=== PATIENT | male | born 1965 | race Caucasian/White ===

== ENCOUNTER 2017-08-13 06:42 | Observation (INO) | payer OTHER ==
[2017-08-13] MEDS ORDERED: ceFAZolin 2 GM/SWFI 2 GM/20 ML SYR IVP ONE (06:53)
[2017-08-13] MEDS ORDERED: GABAPENTIN 300 MG CAP PO ONE (06:53)
[2017-08-13] MEDS ORDERED: ACETAMINOPHEN 500 MG TAB PO ONE (06:53)
[2017-08-13] MEDS ORDERED: LR 1,000 ML IV ONE (06:55)
--- NOTE | 2017-08-13 06:56 | PDHPUP ---
History & Physical Update H&P update statement: This history and physical update is based on an assessment of the patient which was completed after admission or registration (within 24 hours), but prior to the surgery/procedure. H&P update: H&P reviewed & patient examined, no change in patient's condition since H&P completed (Consents signed and site marked. C5/6 ACDF (CTR was not approved by insurance). All questions answered.)
[2017-08-13] MEDS ORDERED: THROMBIN (BOVINE) 20,000 UNIT VIAL TP ONE (07:46)
[2017-08-13] MEDS ORDERED: CHLORHEXIDINE GLUC HIBICLENS 118 ML BTL TP ONE (07:46)
[2017-08-13] MEDS ORDERED: BACITRACIN 50,000 UNITS/10 ML SYR IRR ONE (07:47)
[2017-08-13] MEDS ORDERED: SURGIFLO MATRIX KIT WITH THROMBIN TP ONE (07:48)
[2017-08-13] MEDS ORDERED: fentaNYL 100 MCG/2 ML INJ ONE ×2 (08:06→10:40)
[2017-08-13] MEDS ORDERED: MIDAZOLAM 2 MG/2 ML VIAL ONE (08:06)
[2017-08-13] MEDS ORDERED: PROPOFOL/EMULSION 500 MG/50 ML BOTTLE IV ONE (08:07)
[2017-08-13] MEDS ORDERED: SUGAMMADEX SODIUM 200 MG/2 ML VIAL IVP ONE (08:53)
[2017-08-13] MEDS ORDERED: LIDOCAINE 2% 5 ML SDV ONE ×2 (08:53→09:07)
[2017-08-13] MEDS ORDERED: ONDANSETRON 4 MG/2 ML VIAL ONE (08:53)
[2017-08-13] MEDS ORDERED: METOCLOPRAMIDE 10 MG/2 ML VIAL ONE (08:53)
[2017-08-13] MEDS ORDERED: ROCURONIUM 50 MG/5 ML VIAL ONE (08:53)
[2017-08-13] MEDS ORDERED: RANITIDINE 50 MG/2 ML VIAL ONE (08:53)
[2017-08-13] MEDS ORDERED: LR 500 ML IV PRN (08:56)
[2017-08-13] MEDS ORDERED: DEXAMETHASONE 4 MG/ML VIAL IVP PRN (08:56)
[2017-08-13] MEDS ORDERED: ONDANSETRON 4 MG/2 ML VIAL IVP PRN ×2 (08:56→10:06)
[2017-08-13] MEDS ORDERED: PROMETHAZINE HCL 25 MG/ML INJ IVP PRN (08:56)
[2017-08-13] MEDS ORDERED: NALOXONE HCL 0.4 MG/ML INJ IVP PRN (08:56)
[2017-08-13] MEDS ORDERED: ALBUTEROL 3 ML DEYVIAL IH PRN (08:56)
--- NOTE | 2017-08-13 08:56 | PDANEPAE ---
ANE Past Medical History - Cardiovascular History Hx Hypertension: No Hx Arrhythmias: No Hx Chest Pain: No Hx Coronary Artery / Peripheral Vascular Disease: No Hx CHF / Valvular Disease: No Hx Palpitations: No - Pulmonary History Hx COPD: No Hx Asthma/Reactive Airway Disease: No Hx Recent Upper Respiratory Infection: No Hx Oxygen in Use at Home: No Hx Sleep Apnea: No Sleep Apnea Screening Result - Last Documented: Positive Pulmonary History Comment: HX - TRAUMATIC PNEUMOTHORAX W/THORANCENTESIS & TUBE - Neurologic History Hx Cerebrovascular Accident: No Hx Seizures: No Hx Dementia: No Neurologic History Comment: MYOCLONUS ATTACKS - DECREASED WITH MEDS - Endocrine History Hx Diabetes: No - Renal History Hx Renal Disorders: No - Liver History Hx Hepatic Disorders: No - Neurological & Psychiatric Hx Hx Neurological and Psychiatric Disorders: Yes Neurological / Psychiatric History Comment: depression/anxiety - Cancer History Hx Cancer: No - Congenital Disorder History Hx Congenital Disorders: No - GI History Hx Gastrointestinal Disorders: No - Other Health History Other Health History: none - Chronic Pain History Chronic Pain: No - Surgical History Prior Surgeries: TONSILLECTOMY. lumbar fusion ANE Review of Systems Review of Systems: - Exercise capacity METS (RN): 4 METS ANE Patient History - Allergies Allergies/Adverse Reactions: No Known Allergies Allergy (Verified 07/27/17 15:15) - Home Medications Home Medications: DULoxetine [Cymbalta 30 MG (*)] 30 mg PO BID 07/20/17 [Last Taken 08/13/17 06:00 ] Ibuprofen [Advil] 600 mg PO TID PRN 07/20/17 [Last Taken 08/12/17] - NPO status NPO Since - Liquids (Date): 08/12/17 NPO Since - Liquids (Time): 18:30 NPO Since - Solids (Date): 08/12/17 NPO Since - Solids (Time): 18:30 - Smoking Hx Smoking Status: Never smoked - Family Anes Hx Family Hx Anesthesia Complications: none ANE Labs/Vital Signs - Vital Signs Blood Pressure: 121/77 Heart Rate: 54 Respiratory Rate: 16 O2 Sat (%): 97 Height: 187.96 cm Weight: 86.183 kg ANE Physical Exam - Airway Neck exam: FROM Mallampati Score: Class 1 Mouth exam: normal dental/mouth exam - Pulmonary Pulmonary: no respiratory distress, no rales or rhonchi, clear to auscultation - Cardiovascular Cardiovascular: regular rate and rhythym, no murmur, rub, or gallop - ASA Status ASA Status: II ANE Anesthesia Plan Anesthesia Plan: general endotracheal anesthesia
[2017-08-13] MEDS ORDERED: PROPOFOL 200 MG/20 ML VIAL ONE (09:07)
[2017-08-13] MEDS ORDERED: ONDANSETRON DISINTEGRATING 4 MG TAB PO PRN (10:06)
[2017-08-13] MEDS ORDERED: MAGNESIUM HYDROXIDE 30 ML UDCUP PO PRN (10:06)
[2017-08-13] MEDS ORDERED: BISACODYL 10 MG SUPP PR PRN (10:06)
[2017-08-13] MEDS ORDERED: LACTULOSE 20 GM/30 ML UDCUP PO PRN (10:06)
[2017-08-13] MEDS ORDERED: diphenhydrAMINE 25 MG CAP PO PRN (10:06)
[2017-08-13] MEDS ORDERED: POLYETHYLENE GLYCOL 3350 17 GM PKT PO PRN (10:06)
--- NOTE | 2017-08-13 10:14 | POSTOPPROG ---
Post Op Note Date of Operation: 08/13/17 Surgeon: Anil Stephenson Parimutuel Cashier: ROBIN Bowles Anesthesia: GET(General Endotracheal) Pre-op Diagnosis: cervical stenosis Post-op Diagnosis: cervical stenosis Indication: Cervical stenosis Procedure: ACDF c5/6 Findings: cervical stenosis Inf/Abcess present in the surg proc area at time of surgery?: No EBL: Minimal PA Addendum - Addendum .: S: Resting comfortably. neck pain O: NAD A&Ox3 MAEx4 5/5 and equal in BUE and BLE. neck soft supple no edema 51 y/o male s/p ACDF C5/6 -Post op xrays pending -PT/OT -Optimize pain management -DVT prophx: TEDs, SCDs, Lovenox POD3 -Please notify NS with any change in neuro/motor exam
[2017-08-13] MEDS ORDERED: NS W/ 20 KCl/L 1,000 ML IV SCH (10:15)
--- NOTE | 2017-08-13 10:27 | POSTANESTH ---
Post Anesthetic Evaluation Cardiovascular Status: Normal, Stable Respiratory Status: Normal, Stable Level of Consciousness/Mental Status: Can Participate in Eval Pain Control: Adequate, Prn Tx Ordered Nausea/Vomiting Control: Adequate, Prn Tx Ordered Complications Possibly Related to Anesthesia: None Noted
[2017-08-13] MEDS: fentaNYL 100 MCG/2 ML INJ IVP PRN ×2 (10:43→11:03)
[2017-08-13] MEDS: ACETAMINOPHEN 500 MG TAB PO SCH ×2 (13:54→20:56)
--- NOTE | 2017-08-13 14:05 | GOP ---
[f rep st] OPERATIVE REPORT DATE OF OPERATION: 08/13/2017 SURGEON: Anil Stephenson MD HEALTH AID: ROBIN Carreno. ANESTHESIA: General. PREOPERATIVE DIAGNOSIS: 1. C5-C6 lateral recess and foraminal stenosis. 2. Cervicalgia and upper extremity radiculopathy. 3. Treatment refractory to nonoperative intervention. POSTOPERATIVE DIAGNOSIS: 1. C5-C6 lateral recess and foraminal stenosis. 2. Cervicalgia and upper extremity radiculopathy. 3. Treatment refractory to nonoperative intervention. PROCEDURE PERFORMED: 1. Anterior arthrodesis with approach to C5-C6. 2. C5-C6 diskectomy with bilateral foraminotomies, osteophytectomies, and interbody fusion using a 7 x 14 x 11 mm titanium coated polyetheretherketone cage filled with morselized autograft and allograft. 3. Anterior cervical fusion C5-C6 with a 4tiitootronic 19 mm Zevo plate. 4. Use of intraoperative fluoroscopy, less than 1 hour physician time. 5. Use of neuromonitoring. 6. Use of the operative microscope. FINDINGS: per imaging SPECIMENS: None. ESTIMATED BLOOD LOSS: 10 mL. INDICATIONS: The patient is a gentleman who unfortunately is suffering from upper neck pain and upper extremity radiculopathy. These have been refractory to nonoperative intervention. After discussion of risks, benefits, and treatment alternatives, after failing nonoperative intervention, we decided to proceed forth with surgery as described above. The patient was originally scheduled also for a carpal tunnel release. However, his insurance did not approve this prior to his surgical intervention. DESCRIPTION OF PROCEDURE: Patient was brought to operating theater and underwent general endotracheal anesthesia without complications. Venodynes, MARTINA hose, and the appropriate lines were placed by Anesthesia. His head was maintained supine on the operating table in slight extension. All bony processes were inspected and padded. Using lateral fluoroscopy and a spinal needle, we then picked our entry point to the C5-C6 level. This was marked as a transverse incision on the right side of his neck. This area was then prepped and draped in the usual sterile surgical fashion. A time-out was completed per protocol. The patient received antibiotics within 1 hour of incision. The incision was taken down initially with the scalpel blade, and then using monopolar, the incision was taken down through subcutaneous tissue to the level of the platysma. The platysma was opened and then using both blunt and sharp dissection we traveled in a plane medial to the carotid sheath, lateral to esophagus and trachea to reach the prevertebral fascia. We laneded on the anterior vertebral bodies of C5 and C6 and placed a bayonetted needle into the disk space and confirmed our level using lateral fluoroscopy. Deep retractors were placed to maintain our exposure. The microscope was brought into the field to assist with microscopic dissection and to maintain illumination and magnification. Using a combination of the bur tip on the drill bit, Kerrison punches, and angled curettes we completed a C5-C6 diskectomy with bilateral foraminotomies and osteophytectomies. We prepared the cartilaginous endplates and measured interbody space. We placed a 7 x 14 x 11 mm titanium coated PEEK cage filled with morselized autograft and allograft into the C5-C6 disk space. We removed the Friendship pins and drilled down the anterior osteophytes. We then secured a 19 mm Medtronic Zevo plate onto the vertebral bodies of C5 and C6. AP and lateral x-rays demonstrated good placement of the hardware. The wound was irrigated copiously with bacitracin irrigation. We closed the wound in multiple layers using Vicryl sutures for the deep layers and Dermabond for the skin. The patient was then awakened, extubated, and taken to the recovery room in stable condition. There were no complications and no noted changes on neuromonitoring throughout the procedure. COMPLICATIONS: None. /[id number]/MODL MTDD
[2017-08-13] MEDS: ceFAZolin 2 GM/DEXTROSE 100 ML IV SCH ×2 (16:22→23:36)
[2017-08-13] MEDS: CYCLOBENZAPRINE 10 MG TAB PO SCH ×2 (16:24→20:56)
[2017-08-13] MEDS: SENNOSIDES/DOCUSATE SODIUM TAB PO SCH (20:56)
[2017-08-13] MEDS: FAMOTIDINE 20 MG TAB PO SCH (20:56)
[2017-08-13] MEDS: oxyCODONE IR 5 MG TAB PO PRN (20:57)
[2017-08-13] MEDS: CEPACOL LOZENGE PO PRN (23:36)
[2017-08-14 04:36] VITALS: O2SAT 97
[2017-08-14] MEDS: CEPACOL LOZENGE PO PRN (04:43)
[2017-08-14] MEDS: ACETAMINOPHEN 500 MG TAB PO SCH (05:38)
[2017-08-14 08:02] VITALS: BP 123/78; PULSE 55; RESP 12; TEMP 97.4
[2017-08-14] MEDS: CYCLOBENZAPRINE 10 MG TAB PO SCH (08:23)
[2017-08-14] MEDS: SENNOSIDES/DOCUSATE SODIUM TAB PO SCH (08:23)
[2017-08-14] MEDS: oxyCODONE IR 5 MG TAB PO PRN (08:23)
[2017-08-14] MEDS: FAMOTIDINE 20 MG TAB PO SCH (08:23)
--- NOTE | 2017-08-14 10:52 | NEUSURGPN ---
Date of Surgery: 08/13/17 Post Op Day: 1 Assessment/Plan: 51 yo male s/p ACDF C5/6 - neuro stable - pain controlled on orals - postop x-rays stable - tolerating a diet - discharge home today Subjective: Doing well this morning. No UE pain, numbness, tingling, weakness. Objective: Awake. Alert. PERRL. EOMI Facial expression symmetrical Muscle strength full at 5/5 Sensation intact Incision with dressing c/d/i Neurosurgery Physical Exam - Vitals, I&O, Labs I and O 08/13/17 08/14/17 08/15/17 05:59 05:59 05:59 Intake Total 1050 1010 Balance 1050 1010 Weight 86.183 kg Intake: Oral (ml) 250 IV Intake (ml) 800 IV Infused (ml) 1010 NS W/ 20 KCl/L 1,000 ml @ 900 75 mls/hr IV CONT LUIZ Rx #:[id number] ceFAZolin 2 GM/DEXTROSE 110 100 ml @ 200 mls/hr IV Q8H LUIZ Rx#:[id number] Other: Intake Quantity Yes Sufficient Number of Voids Toilet 1 Vital Signs Temp Pulse Resp BP Pulse Ox 36.3 C 55 L 12 123/78 H 97 08/14/17 08:01 08/14/17 08:01 08/14/17 08:01 08/14/17 08:01 08/14/17 08:01 ICD10 Worksheet Patient Problems: Problems Problem Status Onset Degeneration of lumbar intervertebral disc Acute
--- NOTE | 2017-08-14 12:46 | ASDISCHSUM ---
Discharge Information Plan Status:Home with No Needs Medically Cleared to Leave: Discharge Date:08/14/2017 11:55 AM CM D/C Disposition:Home, Routine, Self-Care ADT D/C Disposition:Home, Routine, Self-Care Projected Discharge Date:08/14/2017 11:55 AM Transportation at D/C: Discharge Delay Reason: Follow-Up Date:08/14/2017 11:55 AM Discharge Slot: Final Diagnosis: Placement Information Patient Contact Information Contact Name:PRAMOD Relationship: Address:[address] [place] [address] City:[facility] Phone: [facility]/Zip Code:[place] [address] Email: Financial Information Financial Class:HMO and PPO Plans Primary Plan Desc:[employer] Primary Plan Number:[id number] Secondary Plan Desc: Secondary Plan Number: Assessment Information [facility] CM Progress Note CM Note CM Note Notes: Discussed case w/ZAIN. Pt dc'd home independantly, had no dc needs. Date Signed: 08/14/2017 12:45 PM Electronically Signed By:Kajal Escobar RN Intervention Information
--- NOTE | 2017-08-14 12:46 | ASMTCMCOM ---
CM Note CM Note Notes: Discussed case w/RN. Pt dc'd home independantly, had no dc needs. Date Signed: 08/14/2017 12:45 PM Electronically Signed By:Kajal Escobar RN
[2017-08-16] MEDS ORDERED: ENOXAPARIN 40 MG/0.4 ML SYR SC SCH (09:00)
== END 2017-08-14 11:55 | disposition home or self-care (01) ==
LOC: F3N 06:42
PROVIDERS: ADMIT Neurological Surgery; ATTEND Neurological Surgery
DX: M48.02 Spinal stenosis, cervical region (principal); G56.01 Carpal tunnel syndrome, right upper limb; M51.36 Other intervertebral disc degeneration, lumbar region
CPT/HCPCS: 22551; 72040; 76001; 97165; G0378; C1713; J0690; J2250; J2405; J2704; J2765; J2780; J3010

== ENCOUNTER → 2017-09-24 | Outpatient (CLI) | payer OTHER | LOC: FIMAGING 08:00 → EDSTATUS 08:01 | PROVIDERS: ATTEND Physician Assistant Surgical | DX: Z98.1 Arthrodesis status (principal) ==

== ENCOUNTER → 2017-11-12 | Outpatient (CLI) | payer OTHER | LOC: FIMAGING 08:41 | PROVIDERS: ATTEND Physician Assistant | DX: Z98.1 Arthrodesis status (principal) ==

== ENCOUNTER → 2018-03-03 | Outpatient (CLI) | payer OTHER | LOC: FIMAGING 13:40 | PROVIDERS: ATTEND Nurse Practitioner | DX: Z09 Encounter for follow-up examination after completed treatment for conditions other than malignant neoplasm (principal); Z98.1 Arthrodesis status ==